=== PATIENT | male | born 1965 | race African-American/Black ===

== ENCOUNTER 2021-04-05 08:31 | Outpatient (CLI) | payer BC | END 2021-04-05 08:32 | disposition home or self-care (01) | LOC: CSHWCC 08:31 | PROVIDERS: ATTEND Nurse Practitioner Family | DX: T81.89XD Other complications of procedures, not elsewhere classified, subsequent encounter (principal); K94.09 Other complications of colostomy; K57.92 Diverticulitis of intestine, part unspecified, without perforation or abscess without bleeding; I10 Essential (primary) hypertension; G45.9 Transient cerebral ischemic attack, unspecified | CPT/HCPCS: 99203; G0463 ==

== ENCOUNTER 2021-04-15 10:04 | Outpatient (CLI) | payer BC | END 2021-04-15 10:05 | disposition home or self-care (01) | LOC: CSHWCC 10:04 | PROVIDERS: ATTEND Nurse Practitioner Family | DX: T81.89XD Other complications of procedures, not elsewhere classified, subsequent encounter (principal); K57.92 Diverticulitis of intestine, part unspecified, without perforation or abscess without bleeding; K94.09 Other complications of colostomy; G45.9 Transient cerebral ischemic attack, unspecified; I10 Essential (primary) hypertension | CPT/HCPCS: 97605; 99213; G0463 ==